=== PATIENT | female | born 1985 | race Asian ===

== ENCOUNTER → 2024-05-11 08:57 | Outpatient (REF) | payer OTHER, SELFPAY | LOC: HWRAD 08:57 | PROVIDERS: ATTENDING PHYSICIAN Otolaryngology | DX: J33.0 Polyp of nasal cavity (principal) | CPT/HCPCS: 70486 ==

== ENCOUNTER → 2024-06-29 16:35 | Outpatient (REF) | payer OTHER, SELFPAY | LOC: CLAB 16:35 | PROVIDERS: ATTENDING PHYSICIAN Otolaryngology | DX: J33.9 Nasal polyp, unspecified (principal) | CPT/HCPCS: 88304 ==